=== PATIENT | male | born 1985 | race Caucasian/White ===

== ENCOUNTER 2018-05-20 17:17 | Emergency (ER) | payer OTHER ==
[2018-05-20] MEDS ORDERED: METH-280 PO (17:42)
[2018-05-20] MEDS ORDERED: METH4TAB66 PO (17:42)
--- NOTE | 2018-05-20 18:02 | ER Report ---
History and Physical Time Seen By MD: 17:40 Hx. of Stated Complaint: pt states had back issues, with 2 surgeries. Bent over to clean on Thursday and felt pop, has been in pain ever since. Unable to sit longer than 10 min HPI/ROS CHIEF COMPLAINT: Low back pain HISTORY OF PRESENT ILLNESS: 32 year old male presents to ED, driven here by a friend, stating he "popped" his back while bending over cleaning the toilet on Thursday. Stated that he felt the pop in his lower back with 10/10 sharp, stabbing pain. He fell to the floor to his right shoulder, crawled to a different room, and laid supine on the floor for an hour due to the pain. Patient went to [facility] on Thursday where he was prescribed an anti-inflammatory and muscle relaxer. Patient reports slight relief with the muscle relaxer. States he returned to [facility] this morning and was prescribed a medrol dose pack. States he hasn't felt relief with the medrol pack. States his pain is located across his lower back on both sides of his spine, it is sharp and stabbing, and worsens with any activity including turning his head to the side. Reports a dull pain radiates to the front of his thighs. States pain is best when lying flat on his back, but is worse with sitting, standing, walking. Patient has a hx of L5, S1 laminectomy. One surgery was in 2008, the second in 2011. States he has hx of sciatica in his right leg that causes pain that radiates down his right leg with numbness and tingling in his foot. Denies any other paresthesias in right and left leg. Denies right shoulder pain. REVIEW OF SYSTEMS: Constitutional: Denies fevers, chills, night sweats. Respiratory: No cough, no dyspnea. Cardiovascular: No chest pain, no palpitations. Gastrointestinal: No vomiting, no abdominal pain. Reports he had a bowel movement this morning; states straining exacerbates his back pain. Genitourinary: Reports he has sensation to his penis and rectum. Reports he has the ability to urinate with no problems. Musculoskeletal: Reports lower back pain, radiating to his thighs. Reports that at times he feels pain in his calf muscles; denies heat, swelling to the area. Denies pain in his hips. Spinal processes non-tender and aligned down the middle of his back. Denies pain with palpation to lower spine but has pain to paraspinal muscles of lower back with palpation. Has equal strength to lower extremities bilaterally. Allergies: Coded Allergies: No Known Drug Allergies (Unverified , 05/20/18) Home Meds Active Scripts Oxycodone Hcl/Acetaminophen (PERCOCET 5-325 MG TABLET) 1 Each Tablet, 1 EACH PO Q4-6H PRN for PAIN, #12 TAB Prov:DAMIEN THOMPSON PRACTICE PROFESSIONAL 05/20/18 Reported Medications Methocarbamol (METHOCARBAMOL) 750 Mg Tablet, 750 MG PO QDAY 05/20/18 Methylprednisolone (METHYLPREDNISOLONE) 4 Mg Tab.ds.pk, 4 MG PO DIRECTED, TAB 05/20/18 Past Medical/Surgical History Medical history of sleep apnea. Surgical hx of laminectomy in 2008 and 2011. Reviewed Nurses Notes: Yes Hx Substance Use Disorder: No Hx Alcohol Use: Yes (occ) Constitutional Vital Sign - Last 24 Hours 05/20/18 05/20/18 05/20/18 17:36 18:00 20:25 Temp 98.4 Pulse 79 65 68 Resp 20 14 B/P (MAP) 151/94 126/84 (98) 128/78 (95) Pulse Ox 98 97 95 O2 Delivery Room Air Room Air Physical Exam General Appearance: The patient is alert, has no immediate need for airway protection and no current signs of toxicity. Respiratory: Chest is non tender, lungs are clear to auscultation. Cardiac: [regular rate and rhythm. Femoral and dorsalis pedis pulses +2 and equal bilaterally. Gastrointestinal: Abdomen is soft and non tender, no masses, bowel sounds normal. Musculoskeletal: Neck: Neck is supple and non tender. Extremities have full range of motion and are non tender. Skin: No rashes or lesions. DIFFERENTIAL DIAGNOSIS: After history and physical exam differential diagnosis was considered for back pain including but not limited to muscular pain, herniated disc, spine fracture, intra-abdominal causes and urinary tract infection. Medical Decision Making EKG/Imaging Imaging L-SPINE >4 VIEWS INDICATION: Low back pain for 3 days. COMPARISON: None available FINDINGS: 5 views of the lumbar spine. There are 5 nonrib-bearing lumbar vertebral bodies. The vertebral bodies are aligned. No compression fractures, bony lesions or spondylolysis. The L5-S1 level does show mild degenerative priti nge and disc space narrowing, osteophytes and facet arthropathy. No other significant degenerative changes. The endplates are maintained. The pedicles well seen. Soft tissues are unremarkable. IMPRESSION: 1. No acute abnormality. 2. Mild degenerative changes L5-S1 Report Dictated By: Nj Chatterjee at 05/20/2018 7:39 PM Report E-Signed By: Nj Chatterjee at 05/20/2018 7:40 PM ED Course/Re-evaluation ED Course Patient was admitted to exam room, history and physical obtained, differential diagnoses considered. Patient was cleaning the toilet on Thursday when he felt a pop in his back with 10/10 pain in his lower back. Pain is sharp and stabbing along his paraspinal muscles with a dull pain that radiates to the front of his thighs. Reports bowel and bladder function with no saddle paresthesias. Was seen by [facility] twice this week where he was prescribed and anti- inflammatory, muscle relaxer, and Medrol dose pack. The muscle relaxer provided some relief. He has hx of two previous laminectomies in 2008 and 2011. History of sciatica in right leg. With physical exam, pain with palpation to paraspinal muscles of the lower back; no paresthesias to lower extremities, pedal and femoral pulses +2 and equal bilaterally. Patient given Percocet in ED for pain. X-ray of lower back obtained. Decreased lordosis noted to spine, spinal processes and vertebral bodies in alignment. Spacing between vertebrate equal. Presence of degenerative changes seen at L5-S1. Percocet provided some pain rel ief. Patient to discharge home with short course of Percocet; he is to continue Medrol dose pack and muscle relaxer. He is to follow-up with orthopedic next week. Decision to Disposition Date: May 20, 2018 Decision to Disposition Time: 20:16 Depart Departure Latest Vital Signs Vital Signs Date Time Temp Pulse Resp B/P (MAP) Pulse Ox O2 Delivery O2 Flow Rate FiO2 05/20/18 20:25 68 14 128/78 (95) 95 Room Air 05/20/18 17:36 98.4 Impression: Primary Impression: Low back pain Condition: Improved Disposition: HOME OR SELF-CARE New Scripts Oxycodone Hcl/Acetaminophen (PERCOCET 5-325 MG TABLET) 1 Each Tablet 1 EACH PO Q4-6H PRN for PAIN, #12 TAB Prov: DAMIEN THOMPSON 05/20/18 Patient Instructions: Acute Low Back Pain (ED) Additional Instructions: Limit activity by pain. Alternate ice and heat to the low back. Follow up with your orthopedists next week for further evaluation. Take the medication as prescribed. No heavy lifting. Increase low impact aerobic activity, such as walking, to help loosen the muscles. Return to the ER if condition worsens. Problem Qualifiers Primary Impression: Low back pain Chronicity: acute Back pain laterality: bilateral Sciatica presence: with sciatica Sciatica laterality: bilateral sciatica Qualified Codes: M54.42 - Lumbago with sciatica, left side; M54.41 - Lumbago with sciatica, right side DAMIEN THOMPSON May 20, 2018 18:02
--- NOTE | 2018-05-20 19:43 | RADIOLOGY IMAGING REPORT ---
FACILITY: [facility] [place] PATIENT NAME: Ezio Yang : 1985 MR: [id number] V: [id number] EXAM DATE: ORDERING PHYSICIAN: DAMIEN THOMPSON TECHNOLOGIST: Location: [facility] [place] Patient: Ezio Yang : 1985 Visit/Account:[id number] Date of Sevice: 05/20/2018 L-SPINE >4 VIEWS INDICATION: Low back pain for 3 days. COMPARISON: None available FINDINGS: 5 views of the lumbar spine. There are 5 nonrib-bearing lumbar vertebral bodies. The vert ebral bodies are aligned. No compression fractures, bony lesions or spondylolysis. The L5-S1 level do es show mild degenerative change and disc space narrowing, osteophytes and facet arthropathy. No othe r significant degenerative changes. The endplates are maintained. The pedicles well seen. Soft tissue s are unremarkable. IMPRESSION: 1. No acute abnormality. 2. Mild degenerative changes L5-S1 Report Dictated By: Nj Chatterjee at 05/20/2018 7:39 PM Report E-Signed By: Nj Chatterjee at 05/20/2018 7:40 PM WSN:[id number]
[2018-05-20] MEDS ORDERED: OXYC-865 PO (20:17)
[2018-05-20] MEDS ORDERED: oxyCODONE/ACETAMIN 5/325MG TH 2 TAB/BOTTLE PO ONE (20:20)
[2018-05-20 20:25] VITALS: BP 128/78
== END 2018-05-20 20:26 | disposition home or self-care (01) ==
LOC: ER 17:48
DX: M54.5 Low back pain (principal)
CPT/HCPCS: 72120; 99283